=== PATIENT | female | born 1965 | race Caucasian/White ===

== ENCOUNTER 2021-06-18 13:02 | Emergency (ER) | payer SELFPAY ==
--- NOTE | 2021-06-18 14:22 | EDM.PDOC ---
ED HPI GENERAL MEDICAL PROBLEM - General Chief Complaint: General Stated Complaint: PRESSURE ON RIGHT SIDE OF FACE Time Seen by Provider: 06/18/21 14:05 Source of Information: Reports: Patient, Police History Limitations: Reports: No Limitations - History of Present Illness INITIAL COMMENTS - FREE TEXT/NARRATIVE: 55-year-old female was brought in by law enforcement after developing some weakness on the right side of her face. This occurred after being placed in some type of a hold by the police department where they put pressure on the TMJ areas both sides of her jaw. No other symptoms. Onset: Sudden Duration: Hour(s): (The last 3 hours) Location: Reports: Face (Right face) Associated Symptoms: Reports: No Other Symptoms - Related Data Allergies Allergy/AdvReac Type Severity Reaction Status Date / Time No Known Allergies Allergy Verified 06/18/21 13:42 Home Meds: Home Meds amLODIPine [Norvasc] 5 mg PO DAILY 06/18/21 [History] Past Medical History HEENT History: Reports: Other (See Below) Other HEENT History: blocked tear duct Cardiovascular History: Reports: Hypertension Genitourinary History: Reports: Other (See Below) Other Genitourinary History: kidney issue unsure of name 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: Musculoskeletal History: Reports: None Neurological History: Reports: Migraines Endocrine/Metabolic History: Reports: None - Past Surgical History Head Surgeries/Procedures: Reports: None HEENT Surgical History: Reports: None Cardiovascular Surgical History: Reports: None Female Surgical History: Reports: None Endocrine Surgical History: Reports: Parathyroidectomy Neurological Surgical History: Reports: None Musculoskeletal Surgical History: Reports: Other (See Below) Other Musculoskeletal Surgeries/Procedures:: knee surgery Dermatological Surgical History: Reports: None Social & Family History - Tobacco Use Tobacco Use Status *Q: Never Tobacco User Second Hand Smoke Exposure: No - Caffeine Use Caffeine Use: Reports: Coffee - Recreational Drug Use Recreational Drug Use: No ED ROS GENERAL - Review of Systems Review Of Systems: See Below Constitutional: Denies: Fever, Chills Respiratory: Denies: Shortness of Breath Cardiovascular: Denies: Chest Pain GI/Abdominal: Denies: Nausea, Vomiting Skin: Denies: Erythema Neurological: Reports: Other (Weakness of the right facial muscles, no parest hesias) ED EXAM, GENERAL - Physical Exam Exam: See Below Exam Limited By: No Limitations General Appearance: Alert, No Apparent Distress Eye Exam: Right Eye: Periorbital Changes (She does have noticeable periorbital muscle weakness ), Bilateral Eye: PERRL Ear Exam: Bilateral Ear: TM normal Head: Other (Slight weakness of the right periaural muscles) Respiratory/Chest: No Respiratory Distress, Lungs Clear Neurological: Alert, Oriented, No Motor/Sensory Deficits (No other neurologic deficits other than the right facial muscles) Psychiatric: Normal Affect, Normal Mood Course - Vital Signs Last Recorded V/S: Last Vital Signs Temp 98.0 F 06/18/21 13:44 Pulse 62 06/18/21 13:44 Resp 16 06/18/21 13:44 BP 140/94 H 06/18/21 13:44 Pulse Ox 100 06/18/21 13:44 - Re-Assessments/Exams Free Text/Narrative Re-Assessment/Exam: 06/18/21 18:50 This patient has an apparent injury to the right facial nerve that likely will be temporary. She was offered steroids but refused at this time, but will return in 48 hours if not improving significantly and then will accept the treatment. I recommended cool compresses and anti-inflammatories for the next 2 days. Departure - Departure Time of Disposition: 14:35 Disposition: Home, Self-Care 01 Clinical Impression: Right-sided Herrera's palsy - Discharge Information Instructions: Herrera Palsy, Adult Referrals: PCP,None [Primary Care Provider] - Forms: ED Department Discharge Care Plan Goals: Ibuprofen or naproxen may be helpful, cool compresses to the right side of the face and recheck in 48 hours if not significantly improved. Sepsis Event Note (ED) - Evaluation Sepsis Screening Result: No Definite Risk - Focused Exam Vital Signs: Vital Signs Temp Pulse Resp BP Pulse Ox 06/18/21 13:44 98.0 F 62 16 140/94 H 100 06/18/21 13:27 98.0 F 62 16 140/94 H 100
== END 2021-06-18 14:35 | disposition home or self-care (01) ==
LOC: JP.ED 13:02
DX: G51.0 Bell's palsy (principal); I10 Essential (primary) hypertension
CPT/HCPCS: 99284